=== PATIENT | female | born 1965 | race Caucasian/White ===

== ENCOUNTER 2024-01-23 13:20 | Emergency (ER) | payer BC ==
[2024-01-23 14:28] LABS: Absolute Basophils 0.1 K/uL (0-0.5); Absolute Lymphocytes (CBC) 1.6 K/uL (0.7-4.9); Absolute Monocytes 0.4 K/uL (0.1-1.3); Basophils % 0.6 % (0-1.3); Hematocrit 40.9 % (36.0-45.0); Hemoglobin 13.6 g/dL (12.0-15.0); Lymphocytes % 13.4 % (15.3-44.8); MCH 28.5 pg (27.0-35.0); MCHC 33.3 g/dL (32.0-36.0); MCV 85.6 fL (80-100); MPV 8.3 fL (7.6-11.3); Platelets 307 thou/uL (152-406); RBC Red Blood Cell Count 4.77 M/uL (3.86-4.86); Red Cell Distribution Width 13.7 % (12.1-15.2)
[2024-01-23 14:47] LABS: Albumin 3.9 g/dL (3.4-5.0); Anion Gap 8.2 mEq/L (5.0-15.0); Bilirubin Total 0.5 mg/dL (0.2-1.0); Globulin 3.9 g/dL (2.3-3.5); Potassium 3.2 mEq/L (3.5-5.1); Protein, Total 7.8 g/dL (6.4-8.2)
[2024-01-23 15:16] LABS: PT Prothrombin Time 11.9 SECONDS (9.5-12.5); PTT, Activated Partial Thromb 29.9 SECONDS (24.3-36.9); Protime INR 1.08
[2024-01-23] MEDS ORDERED: NA CHLORIDE 0.9% 1,000 ML ONE (16:58)
[2024-01-23] MEDS ORDERED: KETOROLAC 30 MG/ML INJ ONE (16:58)
[2024-01-23 16:59] LABS: Specific Gravity 1.026 (1.005-1.030); Urine Bacteria <20 /HPF (<20); Urine Bilirubin NEGATIVE (Negative); Urine Blood 1+ (Negative); Urine Clarity Extremely Turbid (Clear); Urine Color Yellow (Yellow); Urine Culture Reflex Order NOT NEEDED; Urine Glucose TRACE (Negative); Urine Ketones 2+ (Negative); Urine Micro Reflex YN NO BILL MICROSCOPIC; Urine Mucus 3+ /HPF (None Seen); Urine Nitrite NEGATIVE (Negative); Urine Protein 1+ (Negative); Urine Urobilinogen Normal (Normal); Urine WBC <5 /HPF (<5); Urine pH 5.5 (5.0-7.0)
--- NOTE | 2024-01-23 17:22 | RAD REPORT ---
EXAM DESCRIPTION: CTAbdomen Pelvis W Contrast - 01/23/2024 5:05 pm CLINICAL HISTORY: FLANK PAIN COMPARISON: CT ABD PELVIS W CONTRAST dated 09/03/2013; CT ABD PELVIS W CONTRAST dated 12/27/2011 TECHNIQUE: CT of the abdomen and pelvis was performed. All CT scans are performed using dose optimization technique as appropriate and may include automated exposure control or mA/KV adjustment according to patient size. FINDINGS: Lower chest: Small hiatal hernia. Liver: Benign-appearing low-density lesion the posterior right hepatic lobe. Biliary: No biliary ductal dilatation. Stomach: No significant focal abnormality. Duodenum: No significant focal abnormality. Pancreas: No significant abnormality. Spleen: No significant abnormality. Adrenal: No suspicious lesions. Kidney/ureter: Severe right-sided hydroureteronephrosis. There are 2 stones at the right UVJ, the lar awa stone measures 5 millimeters. A left renal cyst is noted. Retroperitoneum: No retroperitoneal adenopathy. Vascular: No aneurysm. Bowel: No significant focal abnormality. Peritoneum: No ascites or free air. Bladder: Grossly unremarkable. Reproductive: No adnexal masses. Bones: No acute fracture. Fusion hardware in the lower thoracic and lumbar spine. Grade 1 anterolisth esis of L4 on L5. Other: n/a IMPRESSION: Severe right-sided hydroureteronephrosis secondary to two stones at the right UVJ, the l arger stone measuring 5 millimeters.
[2024-01-23] MEDS ORDERED: ONDANSETRON 4 MG/2 ML VIAL ONE (17:59)
[2024-01-23] MEDS ORDERED: TAMSULOSIN 0.4 MG SR CAP ONE (18:01)
[2024-01-23] MEDS ORDERED: MAGNESIUM SULFATE 1 gm IVPB 1 GM/100 ML BAG IV ONE (18:02)
[2024-01-23] MEDS ORDERED: CEFTRIAXONE 1000 MG/VIAL ONE (19:30)
--- NOTE | 2024-01-23 20:10 | EDPHYS ---
Physician Documentation [facility] Name: Meghna Garcia Age: 58 yrs Sex: Female : 1965 Arrival Date: 01/23/2024 Time: 13:20 Bed 11 Private MD: Teri Solis ED Physician Guillermo Rice HPI: 01/22 13:43 This 58 yrs old Female presents to ER via Ambulatory with complaints of Abdominal Pain, sb4 Back Pain. 13:43 Patient states that she started experiencing UTI symptoms a few days ago. She states sb4 that it is progressed to where she has pain in her right lower quadrant that radiates around to her right flank. She states that she has had nausea vomiting and now cannot hold anything down. Her PCP sent her to come to the ED for further evaluation. She also endorses subjective fever and chills. Does report chronic UTIs in which she takes Macrobid daily. Historical: - Allergies: 13:31 No Known Allergies; ll1 - Home Meds: 13:31 acetazolamide 250 mg Oral tablet [Active]; pregabalin 75 mg Oral capsule [Active]; ll1 nitrofurantoin macrocrystal 50 mg Oral capsule [Active]; Ozempic 1 mg/dose (4 mg/3 mL) subcutaneous Pen Injector [Active]; - PMHx: 13:31 Osteoarthritis; intracranial HTN; ll1 - PSHx: 13:31 back surgery with rods; Cholecystectomy; ll1 - Immunization history:: Adult Immunizations up to date. - Social history:: Smoking status: Patient denies any tobacco usage or history of. ROS: 13:43 Constitutional: Positive for chills, fever, sb4 13:43 Abdomen/GI: Positive for abdominal pain, nausea and vomiting, 13:43 Back: Positive for flank pain, 13:43 : Positive for urinary symptoms, 13:43 All other systems are negative, Exam: 13:43 Constitutional: This is a well developed, well nourished patient who is awake, alert, sb4 and in no acute distress. Head/Face: Normocephalic, atraumatic. Eyes: Extra-ocular motions intact. Periorbital areas with no swelling, redness, or edema. ENT: Mucous membranes moist. Respiratory: Lungs have equal breath sounds bilaterally, clear to auscultation and percussion. No rales, rhonchi or wheezes noted. No increased work of breathing, no retractions or nasal flaring. Abdomen/GI: Soft, non-tender, no distension. Skin: Warm, dry with normal turgor. Normal color with no rashes, no lesions, and no evidence of cellulitis. MS/ Extremity: Pulses equal, no cyanosis. Neurovascular intact. Full, normal range of motion. Neuro: Awake and alert, GCS 15, oriented to person, place, time, and situation. Motor strength 5/5 in all extremities. Sensory grossly intact. 13:43 Cardiovascular: Rate: tachycardic, Rhythm: regular, Vital Signs: 13:29 BP 159 / 103; Pulse 110; Resp 16; Temp 97.2; Pulse Ox 99% ; Weight 71.21 kg; Height 5 ll1 ft. 1 in. ; Pain 7/10; 18:19 BP 164 / 98; Pulse 85; Resp 16; Pulse Ox 98% on R/A; Pain 7/10; iw 19:36 BP 128 / 88; Pulse 78; Resp 16; Pulse Ox 100% on R/A; mb9 13:29 Body Mass Index 29.66 (71.21 kg, 154.94 cm) ll1 13:29 Pain Scale: Adult ll1 18:19 Pain Scale: Adult iw MDM: 13:27 Patient medically screened. sb4 13:43 Differential diagnosis: appendicitis, Pyelonephritis, Ureterolithiasis, urinary tract sb4 infection. 18:27 Data reviewed: vital signs, nurses notes, lab test result(s), radiologic studies, I sb4 have discussed the patient's presentation/case with the attending Emergency Department Physician;. 20:08 Management of patient was discussed with the following: Dye Maker: Dr. Moore, sb4 recommended outpatient followup. 01/22 13:32 Order name: UAM; Complete Time: 16:59 [place] [place] 01/22 13:40 Order name: Blood Culture Adult (2) [facility] [place] 01/22 13:40 Order name: CBC with Diff; Complete Time: 14:37 4 01/22 13:40 Order name: CMP; Complete Time: 14:47 [place] 01/22 13:40 Order name: Lactate w/ 2H reflex if indic.; Complete Time: 14:47 [place] 01/22 13:40 Order name: Protime (+inr); Complete Time: 15:22 sb4 01/22 13:40 Order name: Ptt, Activated; Complete Time: 15:22 sb4 01/22 16:14 Order name: CT Abd/Pelvis - IV Contrast Only; Complete Time: 17:33 sb4 01/22 13:40 Order name: Accucheck; Complete Time: 19:26 sb4 01/22 13:40 Order name: Cardiac monitoring; Complete Time: 19:26 sb4 01/22 13:40 Order name: IV Saline Lock - Large Bore; Complete Time: 14:18 sb4 01/22 13:40 Order name: Labs collected and sent; Complete Time: 14:18 sb4 01/22 13:40 Order name: Vital Signs; Complete Time: 19: sb4 01/22 18:46 Order name: Misc. Order: provide urine strainer; Complete Time: 19:25 sb4 01/22 19:46 Order name: PO challenge; Complete Time: 19:53 sb4 Administered Medications: 18:11 Drug: NS 0.9% IV 1000 ml IV at 1 bolus Per protocol; 1000 mL bolus Route: IV; Rate: 1 iw bolus; Site: right antecubital; 18:11 Drug: Ketorolac IVP 15 mg IVP once Route: IVP; Site: right antecubital; iw 18:11 Drug: Ondansetron IVP 4 mg IVP once; over 2 minutes Route: IVP; Site: right antecubital;iw 18:11 Drug: Magnesium Sulfate IVPB 1 grams IVPB once over 1 hrs Route: IVPB; Infused Over: 1 iw hrs; Site: right antecubital; 18:17 Drug: Flomax PO 0.4 mg PO once Route: PO; iw 19:36 Drug: Rocephin IV 1 grams IV at calculated rate once; Given slow IV push per pharmacy mb9 instructions Route: IV; Rate: calculated rate; Site: right forearm; Disposition: 23:54 Chart complete. sb4 01/23 09:02 Co-signature as Attending Physician, Guillermo Rice MD I reviewed the patient's care rn provided by the Advanced Practice Provider and agree with the diagnosis and treatment plan. Disposition Summary: 01/23/24 20:09 Discharge Ordered Notes: Location: Home sb4 Problem: new sb4 Symptoms: have improved sb4 Condition: Stable sb4 Diagnosis - Calculus of kidney with calculus of ureter sb4 Followup: sb4 - With: Jaime Moore MD - When: Tomorrow - Reason: Recheck today's complaints, Re-evaluation by your physician Discharge Instructions: - Discharge Summary Sheet sb4 - Kidney Stones sb4 Forms: - Thank You Letter sb4 - Patient Portal Instructions sb4 - Leadership Thank You Letter sb4 Prescriptions: - ketorolac 10 mg Oral tablet - take 1 tablet ORAL route every 4 to 6 hours for 5 days as needed for pain; do sb4 not exceed 4 doses per 24 hrs; 20 tablet; Refills: 0, Product Selection Permitted - tamsulosin 0.4 mg Oral capsule - take 1 capsule ORAL route daily; 30 capsule; Refills: 0, Product Selection sb4 Permitted - Zofran 4 mg Oral Tablet - take 1 tablet ORAL route every 12 hours As needed; 20 tablet; Refills: 0, sb4 Product Selection Permitted Signatures: Dispatcher [employer] EDPearl Christian RN RN Guillermo Rice MD MD rn Lewis, Lynsay, RN RN ll1 Davina Sanabria PA-C PALarissa sb4 Erika Green RN RN mb9 Corrections: (The following items were deleted from the chart) 01/22 13:34 13:31 PSHx: Back SC rods/screws; ll1 ll1 13:41 13:40 BLOOD CULTURE*+BA.LAB.BRZ ordered. EDMS EDMS 13:41 13:40 CBC+H.LAB.BRZ ordered. EDMS EDMS 13:41 13:40 COMPREHENSIVE METABOLIC PANEL+C.LAB.BRZ ordered. EDMS EDMS 13:41 13:40 LACTATE+C.LAB.BRZ ordered. EDMS EDMS 13:41 13:40 PROTIME (+INR)+COAG.LAB.BRZ ordered. EDMS EDMS 13:41 13:40 PTT, ACTIVATED+COAG.LAB.BRZ ordered. EDMS EDMS
--- NOTE | 2024-01-23 20:10 | ER ---
Nurse's Notes [facility] Name: Meghna Garcia Age: 58 yrs Sex: Female : 1965 Arrival Date: 01/23/2024 Time: 13:20 Bed 11 Private MD: Teri Solis Diagnosis: Calculus of kidney with calculus of ureter Presentation: 01/22 13:29 Chief complaint: Patient states: R flank pain for 2 days. Pain to vaginal area with ll1 urination. Chronic UTI's. + N/V. Coronavirus screen: Client denies travel out of the [place] in the last 14 days. At this time, the client does not indicate any symptoms associated with coronavirus-19. Ebola Screen: Patient denies travel to an Ebola-affected area in the 21 days before illness onset. Initial Sepsis Screen: Does the patient meet any 2 criteria? No. Patient's initial sepsis screen is negative. Does the patient have a suspected source of infection? No. Patient's initial sepsis screen is negative. Risk Assessment: Do you want to hurt yourself or someone else? Patient reports no desire to harm self or others. Onset of symptoms was January 21, 2024. 13:29 Method Of Arrival: Ambulatory ll1 13:29 Acuity: EDY 3 ll1 Triage Assessment: 13:29 General: Appears in no apparent distress. Behavior is calm, cooperative, appropriate ll1 for age. Pain: Complains of pain in R flank. Neuro: No deficits noted. Cardiovascular: No deficits noted. GI: Reports lower abdominal pain. : Reports pain in right flank(s). Historical: - Allergies: 13:31 No Known Allergies; ll1 - Home Meds: 13:31 acetazolamide 250 mg Oral tablet [Active]; pregabalin 75 mg Oral capsule [Active]; ll1 nitrofurantoin macrocrystal 50 mg Oral capsule [Active]; Ozempic 1 mg/dose (4 mg/3 mL) subcutaneous Pen Injector [Active]; - PMHx: 13:31 Osteoarthritis; intracranial HTN; ll1 - PSHx: 13:31 back surgery with rods; Cholecystectomy; ll1 - Immunization history:: Adult Immunizations up to date. - Social history:: Smoking status: Patient denies any tobacco usage or history of. Screenin:36 [facility] ED Fall Risk Assessment (Adult) History of falling in the last 3 months, ph including since admission No falls in past 3 months (0 pts) Confusion or Disorientation No (0 pts) Intoxicated or Sedated No (0 pts) Impaired Gait No (0 pts) Mobility Assist Device Used No (0 pt) Altered Elimination No (0 pt) Score/Fall Risk Level 0 - 2 = Low Risk Oriented to surroundings, Maintained a safe environment, Hourly rounding (assess needs \T\ fall precautionary measures) done. Abuse screen: Denies threats or abuse. Denies injuries from another. Nutritional screening: No deficits noted. Tuberculosis screening: No symptoms or risk factors identified. Assessment: 16:40 Reassessment: No changes from previously documented assessment. Patient and/or family ll1 updated on plan of care and expected duration. Pain level reassessed. Patient is alert, oriented x 3, equal unlabored respirations, skin warm/dry/pink. 17:15 General: Appears in no apparent distress. Behavior is calm, cooperative. Pain: ph Complains of pain in posterior aspect of right lateral abdomen and anterior aspect of right lateral abdomen. Neuro: Level of Consciousness is awake, alert, obeys commands, Oriented to person, place, time, situation. Cardiovascular: Capillary refill < 3 seconds in bilateral fingers Patient's skin is warm and dry. : Reports burning with urination, pain in right flank(s). Derm: Skin is pink, warm \T\ dry. 18:17 Reassessment: Patient appears in no apparent distress at this time. Patient and/or iw family updated on plan of care and expected duration. Pain level reassessed. Patient is alert, oriented x 3, equal unlabored respirations, skin warm/dry/pink. 19:36 Reassessment: No changes from previously documented assessment. Patient and/or family mb9 updated on plan of care and expected duration. Pain level reassessed. Patient is alert, oriented x 3, equal unlabored respirations, skin warm/dry/pink. 20:35 Reassessment: No changes from previously documented assessment. Patient and/or family mb9 updated on plan of care and expected duration. Pain level reassessed. Patient is alert, oriented x 3, equal unlabored respirations, skin warm/dry/pink. Vital Signs: 13:29 BP 159 / 103; Pulse 110; Resp 16; Temp 97.2; Pulse Ox 99% ; Weight 71.21 kg; Height 5 ll1 ft. 1 in. ; Pain 7/10; 18:19 BP 164 / 98; Pulse 85; Resp 16; Pulse Ox 98% on R/A; Pain 7/10; iw 19:36 BP 128 / 88; Pulse 78; Resp 16; Pulse Ox 100% on R/A; mb9 13:29 Body Mass Index 29.66 (71.21 kg, 154.94 cm) ll1 13:29 Pain Scale: Adult ll1 18:19 Pain Scale: Adult iw ED Course: 13:22 Patient arrived in ED. mr 13:23 Teri Solis, is Private Physician. mr 13:26 Davina Sanabria PA-C is PHCP. sb4 13:26 Guillermo Rice MD is Attending Physician. sb4 13:27 Arm band placed on. ll1 13:31 Triage completed. ll1 14:15 Initial lab(s) drawn, by me, sent to lab. First set of blood cultures drawn by me. bc6 14:18 Blood Culture Adult (2) Sent. bc6 14:18 CBC with Diff Sent. bc6 14:18 CMP Sent. bc6 14:18 Lactate w/ 2H reflex if indic. Sent. bc6 14:18 Protime (+inr) Sent. bc6 14:18 Ptt, Activated Sent. bc6 14:18 Inserted saline lock: 20 gauge in right antecubital area, using aseptic technique. bc6 Blood collected. 16:40 Patient placed in an exam room, on a stretcher. ll1 16:42 UAM Sent. ll1 16:42 Urine collected: clean catch specimen, sowmya colored, Amount Voided: 200mL. ll1 16:52 Gena Benitez, RN is Primary Nurse. ph 17:06 CT Abd/Pelvis - IV Contrast Only In Process Unspecified. EDMS 18:37 Patient has correct armband on for positive identification. Bed in low position. Call ph light in reach. Side rails up X 1. Pulse ox on. NIBP on. Door closed. Noise minimized. Warm blanket given. 20:09 Jaime Moore MD is Referral Physician. sb4 20:34 IV discontinued, intact, bleeding controlled, No redness/swelling at site. Pressure mb9 dressing applied. 20:35 No provider procedures requiring assistance completed. mb9 Administered Medications: 18:11 Drug: NS 0.9% IV 1000 ml IV at 1 bolus Per protocol; 1000 mL bolus Route: IV; Rate: 1 iw bolus; Site: right antecubital; 18:11 Drug: Ketorolac IVP 15 mg IVP once Route: IVP; Site: right antecubital; iw 18:11 Drug: Ondansetron IVP 4 mg IVP once; over 2 minutes Route: IVP; Site: right antecubital;iw 18:11 Drug: Magnesium Sulfate IVPB 1 grams IVPB once over 1 hrs Route: IVPB; Infused Over: 1 iw hrs; Site: right antecubital; 18:17 Drug: Flomax PO 0.4 mg PO once Route: PO; iw 19:36 Drug: Rocephin IV 1 grams IV at calculated rate once; Given slow IV push per pharmacy mb9 instructions Route: IV; Rate: calculated rate; Site: right forearm; Medication: 18:37 VIS not applicable for this client. ph Outcome: 20:09 Discharge ordered by . norm4 20:35 Discharged to home ambulatory, mb9 20:35 Condition: stable 20:35 Discharge instructions given to patient, family, Instructed on discharge instructions, follow up and referral plans. Demonstrated understanding of instructions, follow-up care, medications, Prescriptions given X 3, 20:37 Patient left the ED. mb9 Signatures: Dispatcher [employer] EDID Erika Bajwa, Pearl Day RN RN iw Hall, Patricia, RN RN ph Lewis, Lynsay, RN RN Davina Capps PALarissa PA-C Erika Cesar RN RN mb9 Marlene Franco [facility] Corrections: (The following items were deleted from the chart) 13:34 13:31 PSHx: Back SC rods/screws; ll1 ll1 13:34 13:29 BP 159 / 103; Pulse 110bpm; ll1 ll1
[2024-01-24 00:59] VITALS: BP 128/88; TEMP 97.2; O2SAT 100
== END 2024-01-23 20:37 | disposition home or self-care (01) ==
LOC: ER 13:20
DX: N20.2 Calculus of kidney with calculus of ureter (principal)
CPT/HCPCS: 87040 ×2; 85025; 81001; 36415; 85610; 83605; 85730; 80053; 74177; 99284; Q9967; J3475; J2405; J7030; J0696